=== PATIENT | female | born 1990 | race Two or more races ===

== ENCOUNTER 2018-04-01 18:39 | Emergency (ER) | payer OTHER ==
[2018-04-01 19:59] LABS: ABSOLUTE EOSINOPHILS # (AUTO) 0.1 10^3/uL (0.0-0.6); ABSOLUTE LYMPHOCYTES (AUTO) 2.1 10^3/uL (0.5-4.7); ABSOLUTE MONOCYTES (AUTO) 0.5 10^3/uL (0.1-1.4); ABSOLUTE NEUT (AUTO) 3.4 10^3/uL (1.7-8.2); BASOPHILS % (AUTO) 0.3 % (0-2); HEMOGLOBIN 12.2 g/dL (12.0-15.5); LYMPHOCYTES % (AUTO) 34.1 % (13-45); MEAN CORPUSCULAR HEMOGLOBIN 28.2 pg (27.0-33.4); MEAN CORPUSCULAR HGB CONC 33.7 g/dL (32.0-36.0); MEAN CORPUSCULAR VOLUME 84 fl (80-97); MONOCYTES % (AUTO) 7.9 % (3-13); PLATELET COUNT 268 10^3/uL (150-450); RED CELL DISTRIBUTION WIDTH 13.6 % (11.5-14.0); SEGMENTED NEUTROPHILS % (AUTO) 55.7 % (42-78); TOTAL CELLS COUNTED % (AUTO) 100 %; WHITE BLOOD COUNT 6.1 10^3/uL (4.0-10.5)
[2018-04-01 20:14] LABS: APPEARANCE,URINE SLIGHTLY-CLOUDY; BILIRUBIN,URINE NEGATIVE (NEGATIVE); COLOR,URINE YELLOW; GLUCOSE, URINE NEGATIVE (NEGATIVE); KETONES,URINE NEGATIVE (NEGATIVE); LEUKOCYTE ESTERASE,URINE NEGATIVE (NEGATIVE); NITRITE,URINE NEGATIVE (NEGATIVE); PROTEIN,URINE NEGATIVE (NEGATIVE); UROBILINOGEN,URINE NEGATIVE mg/dL (<2.0)
--- NOTE | 2018-04-01 21:23 | ER Document Report ---
ED General - General Chief Complaint: Vaginal Bleeding Stated Complaint: VAGINAL BLEEDING Time Seen by Provider: 04/01/18 19:15 TRAVEL OUTSIDE OF THE [place] IN LAST 30 DAYS: No - HPI Patient complains to provider of: Vaginal bleeding Notes: Patient coming in for evaluation of vaginal bleeding. Patient states she is having vaginal bleeding for the last 11 days. Patient denies any fevers chills nausea vomiting diarrhea syncope dizziness lightheadedness or weakness. Patient states she is used approximately 2 pads today. Patient is unaware of her status. Patient states that she is a with a miscarriage in the past. - Related Data Allergies/Adverse Reactions: No Known Allergies Allergy (Unverified 04/01/18 18:41) Past Medical History - Social History Smoking Status: Never Smoker Chew tobacco use (# tins/day): No Frequency of alcohol use: Rare Drug Abuse: None Family History: Reviewed & Not Pertinent Patient has suicidal ideation: No Patient has homicidal ideation: No Renal/ Medical History: Denies: Hx Peritoneal Dialysis Review of Systems - Review of Systems Constitutional: No symptoms reported EENT: No symptoms reported Cardiovascular: No symptoms reported Respiratory: No symptoms reported Gastrointestinal: No symptoms reported Genitourinary: No symptoms reported Female Genitourinary: Vaginal bleeding Musculoskeletal: No symptoms reported Skin: No symptoms reported Hematologic/Lymphatic: No symptoms reported Neurological/Psychological: No symptoms reported Physical Exam - Vital signs Vitals: Temp Pulse Resp BP Pulse Ox 98.8 F 84 18 122/79 97 04/01/18 18:44 04/01/18 18:44 04/01/18 18:44 04/01/18 18:44 04/01/18 18:44 Interpretation: Normal - General General appearance: Appears well, Alert - HEENT Head: Normocephalic, Atraumatic Eyes: Normal Pupils: PERRL - Respiratory Respiratory status: No respiratory distress Chest status: Nontender Breath sounds: Normal Chest palpation: Normal - Cardiovascular Rhythm: Regular Heart sounds: Normal auscultation Murmur: No - Abdominal Inspection: Normal Distension: No distension Bowel sounds: Normal Tenderness: Nontender Organomegaly: No organomegaly - Genitourinary External exam: Normal Speculum exam: Normal Vaginal bleeding: Mild Bimanuel exam: Normal - Back Back: Normal, Nontender - Extremities General upper extremity: Normal inspection, Nontender, Normal color, Normal ROM , Normal temperature General lower extremity: Normal inspection, Nontender, Normal color, Normal ROM , Normal temperature, Normal weight bearing. No: Camille's sign - Neurological Neuro grossly intact: Yes Cognition: Normal Orientation: AAOx4 [place] Coma Scale Eye Opening: Spontaneous [place] Coma Scale Verbal: Oriented [place] Coma Scale Motor: Obeys Commands Ivory Coma Scale Total: 15 Speech: Normal Motor strength normal: LUE, RUE, LLE, RLE Sensory: Normal - Psychological Associated symptoms: Normal affect, Normal mood - Skin Skin Temperature: Warm Skin Moisture: Dry Skin Color: Normal Course - Re-evaluation Re-evalutation: 04/02/18 00:32 No critical pathology seen on patient's examination hemoglobin hematocrit stable. Patient is currently not . More likely patient is experiencing dysfunctional uterine bleeding. Patient was encouraged to follow- up with her [employer] OPERATOR states understanding will be discharged home - Vital Signs Vital signs: Temp Pulse Resp BP Pulse Ox 98.3 F 75 18 116/72 100 04/01/18 21:35 04/01/18 21:35 04/01/18 21:35 04/01/18 21:35 04/01/18 21:35 - Laboratory Result Diagrams: 04/01/18 19:33 Laboratory results interpreted by me: 04/01/18 19:33 Urine Blood LARGE H Discharge - Discharge Clinical Impression: Dysfunctional uterine bleeding Condition: Good Disposition: HOME, SELF-CARE Instructions: Dysfunctional Uterine Bleeding ([facility]) Additional Instructions: At this time her laboratory values not show any signs of significant anemia there is no signs of . Your pelvic examination did not reveal any critical pathology. We recommend starting [id number] iron supplement. Please be sure drinking plenty water to stay hydrated. Follow-up with your OB/ INSTRUMENT CHECKER. Return to the ER if any symptoms worsen.
[2018-04-01 21:39] VITALS: BP 116/72
== END 2018-04-01 21:39 | disposition home or self-care (01) ==
LOC: ER 18:39
DX: N93.8 Other specified abnormal uterine and vaginal bleeding (principal); Z87.59 Personal history of other complications of pregnancy, childbirth and the puerperium
CPT/HCPCS: 36415; 81001; 81025; 85025; 99284

== ENCOUNTER 2019-05-16 17:53 | Emergency (ER) | payer OTHER ==
--- NOTE | 2019-05-16 19:21 | ER Document Report ---
ED GI/ - General Chief Complaint: Vag Bleeding, +preg <12wks Stated Complaint: POSSIBLE MISCARRIAGE Time Seen by Provider: 05/16/19 19:12 Notes: Patient is an otherwise healthy 28-year-old female G3, P0, presenting to the emergency department with vaginal bleeding. Patient reports she is approximately 3 to 5 weeks . She states she had a positive urine test at home and then 2+ urine tests at her [employer] office. She states today she started having low abdominal cramping and started having vaginal bleeding that is light but similar to a period. TRAVEL OUTSIDE OF THE [place] IN LAST 30 DAYS: No - Related Data Allergies/Adverse Reactions: No Known Allergies Allergy (Unverified 04/01/18 18:41) Past Medical History - General Information source: Patient - Social History Smoking Status: Never Smoker Frequency of alcohol use: None Drug Abuse: None Family History: Reviewed & Not Pertinent - Medical History Medical History: Negative Renal/ Medical History: Denies: Hx Peritoneal Dialysis Surgical Hx: Negative - Immunizations Immunizations up to date: Yes Review of Systems - Review of Systems Constitutional: No symptoms reported EENT: No symptoms reported Cardiovascular: No symptoms reported Respiratory: No symptoms reported Gastrointestinal: Abdominal pain Genitourinary: No symptoms reported Female Genitourinary: Vaginal bleeding Musculoskeletal: No symptoms reported Skin: No symptoms reported Hematologic/Lymphatic: No symptoms reported Neurological/Psychological: No symptoms reported Physical Exam - Vital signs Vitals: Temp Pulse Resp BP Pulse Ox 98.6 F 69 16 123/75 97 05/16/19 18:36 05/16/19 18:36 05/16/19 18:36 05/16/19 18:36 05/16/19 18:36 - Notes Notes: PHYSICAL EXAMINATION: GENERAL: Well-appearing, well-nourished and in no acute distress. HEAD: Atraumatic, normocephalic. EYES: Pupils equal round and reactive to light, extraocular movements intact, conjunctiva are normal. ENT: Nares patent, oropharynx clear without exudates. Moist mucous membranes. NECK: Normal range of motion, supple without lymphadenopathy LUNGS: Breath sounds clear to auscultation bilaterally and equal. No wheezes rales or rhonchi. HEART: Regular rate and rhythm without murmurs ABDOMEN: Soft, nontender, nondistended abdomen. No guarding, no rebound. No masses appreciated. Female : No CVA tenderness. Musculoskeletal: Normal range of motion, no pitting or edema. No cyanosis. NEUROLOGICAL: Cranial nerves grossly intact. Normal speech, normal gait. Normal sensory, motor exams PSYCH: Normal mood, normal affect. SKIN: Warm, Dry, normal turgor, no rashes or lesions noted. Course - Re-evaluation Re-evalutation: Laboratory 05/16/19 05/16/19 05/16/19 19:32 19:32 20:09 WBC 6.0 RBC 4.51 Hgb 12.9 Hct 38.0 MCV 84 MCH 28.5 MCHC 33.9 RDW 15.0 H Plt Count 249 Lymph % (Auto) 31.3 Archer % (Auto) 7.9 Eos % (Auto) 2.3 Baso % (Auto) 0.5 Absolute Neuts (auto) 3.5 Absolute Lymphs (auto) 1.9 Absolute Monos (auto) 0.5 Absolute Eos (auto) 0.1 Absolute Basos (auto) 0.0 Seg Neutrophils % 58.0 Beta HCG, Quant < 2.39 Total Beta HCG NEGATIVE Urine Color YELLOW Urine Appearance CLOUDY Urine pH 5.0 Ur Specific [place] 1.014 Urine Protein 30 H Urine Glucose (UA) NEGATIVE Urine Ketones NEGATIVE Urine Blood LARGE H Urine Nitrite NEGATIVE Urine Bilirubin NEGATIVE Urine Urobilinogen NEGATIVE Ur Leukocyte Esterase TRACE H Urine WBC (Auto) 100 Urine RBC (Auto) >182 Squamous Epi Cells Auto 3 Urine Mucus (Auto) RARE Urine Ascorbic Acid NEGATIVE Blood Type Rhogam Indicated 05/16/19 20:24 WBC RBC Hgb Hct MCV MCH MCHC RDW Plt Count Lymph % (Auto) Archer % (Auto) Eos % (Auto) Baso % (Auto) Absolute Neuts (auto) Absolute Lymphs (auto) Absolute Monos (auto) Absolute Eos (auto) Absolute Basos (auto) Seg Neutrophils % Beta HCG, Quant Total Beta HCG Urine Color Urine Appearance Urine pH Ur Specific [place] Urine Protein Urine Glucose (UA) Urine Ketones Urine Blood Urine Nitrite Urine Bilirubin Urine Urobilinogen Ur Leukocyte Esterase Urine WBC (Auto) Urine RBC (Auto) Squamous Epi Cells Auto Urine Mucus (Auto) Urine Ascorbic Acid Blood Type B POSITIVE Rhogam Indicated RHOGAM NOT INDICATED Transvaginal US 05/16/19 21:02 IMPRESSION: Endometrium at the upper limits of normal in thickness for premenopausal patient. Otherwise unremarkable exam copyright 2010 [employer]- All Rights Reserved Work-up as recorded above his unremarkable, no at this time as patient's quantitative hCG and serum hCG are both negative. Patient's urinalysis is indicative of urinary tract infection. Patient will be started on antibiotics for this. A copy of her labs was printed for her so that she can follow-up with her [employer]. She does have a appointment this week on Friday. I encouraged her to please keep this appointment. Patient and verbalized understanding and agreement with all discharge instructions. - Vital Signs Vital signs: Temp Pulse Resp BP Pulse Ox 98.6 F 72 16 115/74 89 L 05/16/19 18:36 05/16/19 23:05 05/16/19 23:05 05/16/19 23:05 05/16/19 23:05 - Laboratory Result Diagrams: 05/16/19 19:32 Laboratory results interpreted by me: 05/16/19 05/16/19 19:32 20:09 RDW 15.0 H Urine Protein 30 H Urine Blood LARGE H Ur Leukocyte Esterase TRACE H Discharge - Discharge Clinical Impression: Vaginal bleeding, Negative test Urinary tract infection Qualifiers: Urinary tract infection type: site unspecified Hematuria presence: with hematuria Qualified Code(s): N39.0 - Urinary tract infection, site not specified Condition: Stable Disposition: HOME, SELF-CARE Additional Instructions: You were seen in the emergency department with concerns for vaginal bleeding in the setting of . The blood test we did today was negative. The ultrasound does not show any intrauterine . Please take all results to your [employer] for follow-up. The urinalysis that we performed did show that you have a urinary tract infection. We have started you on an antibiotic for this pending urine culture. Prescriptions: Nitrofurantoin/Nitrofuran Mac [Macrobid 100 mg Capsule] 1 tab PO BID #14 capsule
[2019-05-16 19:48] LABS: ABSOLUTE EOSINOPHILS # (AUTO) 0.1 10^3/uL (0.0-0.6); ABSOLUTE LYMPHOCYTES (AUTO) 1.9 10^3/uL (0.5-4.7); ABSOLUTE MONOCYTES (AUTO) 0.5 10^3/uL (0.1-1.4); ABSOLUTE NEUT (AUTO) 3.5 10^3/uL (1.7-8.2); BASOPHILS % (AUTO) 0.5 % (0-2); EOSINOPHILS % (AUTO) 2.3 % (0-6); HEMOGLOBIN 12.9 g/dL (12.0-15.5); LYMPHOCYTES % (AUTO) 31.3 % (13-45); MEAN CORPUSCULAR HEMOGLOBIN 28.5 pg (27.0-33.4); MEAN CORPUSCULAR HGB CONC 33.9 g/dL (32.0-36.0); MEAN CORPUSCULAR VOLUME 84 fl (80-97); MONOCYTES % (AUTO) 7.9 % (3-13); PLATELET COUNT 249 10^3/uL (150-450); RED BLOOD COUNT 4.51 10^6/uL (3.72-5.28); TOTAL CELLS COUNTED % (AUTO) 100 %
[2019-05-16 20:30] LABS: APPEARANCE,URINE CLOUDY; BILIRUBIN,URINE NEGATIVE (NEGATIVE); COLOR,URINE YELLOW; GLUCOSE, URINE NEGATIVE (NEGATIVE); KETONES,URINE NEGATIVE (NEGATIVE); LEUKOCYTE ESTERASE,URINE TRACE (NEGATIVE); NITRITE,URINE NEGATIVE (NEGATIVE); PROTEIN,URINE 30 mg/dL (NEGATIVE); URINE SPECIFIC GRAVITY 1.014; UROBILINOGEN,URINE NEGATIVE mg/dL (<2.0)
[2019-05-16] MEDS ORDERED: HYDROCODONE/ACETAMINOPHEN 5-325 MG (6 TAB/ER DISP) PO PRN (22:42)
--- NOTE | 2019-05-16 22:45 | RADIOLOGY REPORT (SQ) ---
EXAM DESCRIPTION: US PELVIS TRANSVAGINAL COMPLETED DATE/TME: 05/16/2019 21:02 CLINICAL HISTORY: 28 years, Female, pelvic pain, vaginal bleed COMPARISON: None. TECHNIQUE: Transverse and longitudinal transvaginal sonographic images of the pelvis LIMITATIONS: None. FINDINGS: The uterus measures 7.5 x 4.1 x 4.4 cm. The myometrium is homogenous. The endometrium measures 16 mm in thickness. The right ovary measures 2.2 x 2.0 x 2.0 cm, the left 2.2 x 1.2 x 1.0 cm. Arterial and venous flow to each ovary. No adnexal cyst or mass. No free fluid IMPRESSION: Endometrium at the upper limits of normal in thickness for premenopausal patient. Otherwise unremarkable exam copyright 2010 [employer]- All Rights Reserved
[2019-05-16 23:08] VITALS: BP 115/74
== END 2019-05-16 23:09 | disposition home or self-care (01) ==
LOC: ER 17:53
DX: N93.9 Abnormal uterine and vaginal bleeding, unspecified (principal); N39.0 Urinary tract infection, site not specified; R10.30 Lower abdominal pain, unspecified; Z32.02 Encounter for pregnancy test, result negative
CPT/HCPCS: 36415; 76830; 81001; 84702; 85025; 86900; 86901; 93976; 99284